=== PATIENT | male | born 1955 | race Caucasian/White ===

== ENCOUNTER 2017-09-12 13:13 | Inpatient (IN) ==
[2017-09-12] MEDS ORDERED: *HR* Etomidate 20 MG/10 ML AMPUL IVP ONE (13:25)
[2017-09-12] MEDS ORDERED: *HR* LORazepam 2 MG/ML VIAL IVP STA (15:00)
[2017-09-12] MEDS ORDERED: *HR* LORazepam 2 MG/ML VIAL ONE (15:02)
[2017-09-12] MEDS ORDERED: *HR* EPINEPHrine 1 MG/10 ML SYRINGE ONE (15:16)
[2017-09-12] MEDS ORDERED: 0.9 % Sodium Chloride 1,000 ML ONE ×2 (15:29→17:13)
[2017-09-12] MEDS ORDERED: Propofol 500 MG/50 ML INFUS..BTL ONE (15:30)
[2017-09-12] MEDS ORDERED: Lacri-Lube 3.5 GM TUBE BOTH EYES PRN (15:40)
[2017-09-12] MEDS ORDERED: FentaNYL (PF) 1,000 MCG in 0.9 % Sodium Chloride 80 ML IVC SCH (15:45)
[2017-09-12] MEDS ORDERED: *HR* Norepinephrine 4 MG/4 ML VIAL IVC ONE ×2 (15:54→20:36)
[2017-09-12] MEDS ORDERED: D5% in Water 250 ML ONE (15:54)
[2017-09-12] MEDS ORDERED: Lacri-Lube 3.5 GM TUBE BOTH EYES SCH (16:00)
--- NOTE | 2017-09-12 16:00 | Anesthesia Evaluation PreOp ---
Date of Encounter: 09/12/17 Time of Encounter: 15:58 - Past History Planned Operation: Free Air - Expl Lap, Possible Ostomy Cardiac History: Denies any Significant Hx (UNknown PMH) Pulmonary History: Other (Remote Hx Aspiration Pneumonia s/p G-tube placement) CHIEF LIFESTYLE OFFICER History: Other (Hx Cerebral Palsy/MRDD. Scoliosis/contractures) Other Medical History: Thyroid (Hypotryoidism), GERD (maintained on Omeprazole) , Other Anesthesia History: Past Anesthesia (Zeke w/ G-tube placement 1997., Bilateral Orchiectomy, Colonoscopy 2009) Alcohol Use: none Drug use: none Medications and Allergies Acetaminophen [Children's Acetaminophen] 650 mg GTUBE Q4H 09/02/17 [History] Baclofen [Lioresal] 10 mg GTUBE TID 09/02/17 [History] Calcium Carbonate 1,250 mg PO BID 09/02/17 [History] FLUoxetine HCl [Sarafem] 10 mg GTUBE DAILY 09/02/17 [History] Ibuprofen Susp [Motrin Susp] 200 mg GTUBE Q4H 09/02/17 [History] Ipratropium/Albuterol Neb [Duoneb] 3 ml IH Q4HR 09/02/17 [History] Lactulose 10 gm GTUBE DAILY 09/02/17 [History] Levothyroxine [Synthroid] 75 mcg GTUBE 0630 09/02/17 [History] Omeprazole [PriLOSEC] 20 mg GTUBE DAILY 09/02/17 [History] Cholecalciferol (Vitamin D3) [Vitamin D3] 400 units GTUBE BID 09/12/17 [History] 3 Allergy/AdvReac Type Severity Reaction Status Date / Time No Known Allergies Allergy Verified 09/02/17 09:46 - Meds/Allergy Pre-op Review Medications Reviewed: Yes Allergies Reviewed: Yes Beta Blockers on Current Med List: No Anesthesia Results - Labs Vital Signs Temp Pulse Resp BP Pulse Ox 09/12/17 14:48 101.6 F H 133 30 84/63 90 Intake and Output 09/11/17 09/12/17 09/12/17 23:59 07:59 15:59 Other: Weight 80.6 kg Blood Glucose* 163 Patient Weight 09/12/17 23:59 Weight 80.6 kg Laboratory Tests 09/12/17 09/12/17 11:30 11:30 WBC 2.7 L Hgb 16.9 Hct 50.9 H Plt Count 253 Sodium 134 L Potassium 3.7 Chloride 103 Carbon Dioxide 21 L BUN 21 Creatinine 0.60 L Est GFR (Non-Af Amer) > 60 Glucose 181 H - Imaging EKG: image reviewed (114bpm SUPRAVENTRICULAR TACHYCARDIA ARTIFACT LIMITS INTERPRETATION) Additional studies: CT/CT abd pelvis wo no iv no oral IMPRESSION: 1. Findings concerning for acute perforated diverticulitis involving the distal descending colon, likely the source of the pneumoperitoneum. 2. Fecal impaction. 3. Age-indeterminate compression fracture involving the superior endplate of L2. If there is point tenderness, recommend nonemergent MRI of the lumbar spine. 4. Trace bilateral pleural effusions. The ordering physician was aware of the critical results finding already from the chest radiograph. XR/XR chest 1V portable IMPRESSION: 1. Cardiomegaly with vascular congestion. 2. Pneumoperitoneum. These findings were discussed with Lon Call at 11:52 a.m. 09/12/2017. 3. Cholelithiasis. XR/XR hip complete LT IMPRESSION: Chronic appearing deformity and dislocation of the left hip. No acute osseous abnormality. sa Anesthesia Exam Vital Signs Temp Pulse Resp BP Pulse Ox 09/12/17 14:48 101.6 F H 133 30 84/63 90 Intake and Output 09/12/17 09/12/17 09/12/17 07:59 15:59 23:59 Other: Weight 80.6 kg Blood Glucose* 163 Patient Weight 09/12/17 23:59 Weight 80.6 kg Height: 4'8" Weight: 177# BMI= 39.8 NPO (# of Hours): MNOc - HEENT Pupil (Motor): Pupils equal, EOMI Mallampati: Intubated (intubated/sedated in ICU for Respiratory distress) - CHIEF LIFESTYLE OFFICER LOC: Unable to assess CHIEF LIFESTYLE OFFICER Motor: Deficit RUE (Pt is contractured) - Cardiac Rhythm: Regular Anesthesia Assess/Plan ASA Score: 3, E Modified Ana María Scale for Level of Consciousness: Cooperative, oriented, and tranquil Anesthetic Plan: General Monitoring Plan: Standard Monitors Anes Supervising Prov Stmt: Pt seen emergently in ICU. Spoke with guardian re:PMHx, PSHx and consent. - MD Muriel
[2017-09-12] MEDS ORDERED: Heparin 1,000 UNITS/500 mL 500 ML ONE (16:07)
--- NOTE | 2017-09-12 16:08 | General Surgery Consult Note ---
<Olga Brown Kasie - Last Filed: 09/12/17 16:04> Date of Encounter: 09/12/17 Time of Encounter: 15:00 Assessment and Plan (1) Perforated abdominal viscus Current Visit: No Status: Acute NPO IV fluids IV antibiotics- Zosyn Supportive care Discussed the risks benefits, alternatives and expected outcomes with the patient's legal guardian (Ailyn Jack) and she agrees that the patient may proceed to the operating room for an exploratory celiotomy, possible bowel resection, possible ostomy, replacement of peg tube, placement of jejunostomy tube (consent complete) Persaud catheter to SD for strict I&Os PPI therapy daily Check blood cultures Check PT/INR now Repeat am labs Critical care consult (2) Acute respiratory failure Current Visit: Yes Status: Acute Critical care consult for urgent intubation and medical management Ventilator management per critical care team ABG ordered now Qualifiers: Respiratory failure complication: unspecified whether with hypoxia or hypercapnia Qualified Code(s): J96.00 - Acute respiratory failure, unspecified whether with hypoxia or hypercapnia (3) Lactic acidosis Current Visit: Yes Status: Acute Lactic acid- 3.7 (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 Stubbs Qualifiers: Fever type: due to other condition Qualified Code(s): R50.81 - Fever presenting with conditions classified elsewhere (7) DVT prophylaxis Current Visit: Yes Status: Acute EPCDs to bilateral lower extremities for DVT prophylaxis History of Present Illness Consult date: 09/12/17 Reason for consult: other (perforated viscous; intra-abdominal free air) History of present illness: Mr. Valiente is a 62 year old male with multiple cormorbidities who presented to [place] ED from facility where he resides ([facility]) with complaints of hypoxia, shortness of breath and fever of 102 degrees. He did have a CT scan complete at [facility] which shows evidence of intra-abdominal free air consistent with perforated viscous, presumable diverticular perforation. He was transferred to [facility] for further work-up and treatment. Upon arrival, he is unresponsive and unable to answer any questions. No staff members are present to answer questions. He was in obvious acute respiratory distress with hypoxia. Temperature is 101.3 axillary. Heart rate is tachycardic in the 130's. Critical care team was asked to intervene for for acute respiratory arrest. Past Med Surg Social Fam HX - Past Medical History Source: old records reviewed Medical history: arthritis, GERD, osteoporosis, thyroid disease, other (MRDD, Spastic cerebral palsy/quadriplegia, constipation, esopagitis, dysphagia/ aspiration, Vitamin D deficiency, Bruxism, H. Pylori (2012), thoracoscoliosis with pelvic tilt) Psychiatric history: depression - Past Surgical History Surgical History: no surgical history (Bilateral orchrectomies, Zeke Fundoplication with G-tube insertion (1997), Colonoscopy 2009), other - Social History Smoking Status: Never smoker Smokeless Tobacco Status: No Alcohol use: none Drug use: none Occupational status: disabled Current living situation: Longterm Medications and Allergies Acetaminophen [Children's Acetaminophen] 650 mg GTUBE Q4H 09/02/17 [History] Baclofen [Lioresal] 10 mg GTUBE TID 09/02/17 [History] Calcium Carbonate 1,250 mg PO BID 09/02/17 [History] FLUoxetine HCl [Sarafem] 10 mg GTUBE DAILY 09/02/17 [History] Ibuprofen Susp [Motrin Susp] 200 mg GTUBE Q4H 09/02/17 [History] Ipratropium/Albuterol Neb [Duoneb] 3 ml IH Q4HR 09/02/17 [History] Lactulose 10 gm GTUBE DAILY 09/02/17 [History] Levothyroxine [Synthroid] 75 mcg GTUBE 0630 09/02/17 [History] Omeprazole [PriLOSEC] 20 mg GTUBE DAILY 09/02/17 [History] Cholecalciferol (Vitamin D3) [Vitamin D3] 400 units GTUBE BID 09/12/17 [History] 3 Allergy/AdvReac Type Severity Reaction Status Date / Time No Known Allergies Allergy Verified 09/02/17 09:46 Review of Systems ROS unobtainable: due to endotracheal tube, due to mental status All systems PM: The remainder of the systems were reviewed and are negative General Surgery Exam Initial Vital Signs Temp Pulse Resp BP Pulse Ox 101.6 F H 133 30 84/63 90 09/12/17 14:48 09/12/17 14:48 09/12/17 14:48 09/12/17 14:48 09/12/17 14:48 - General physical appearance severe distress, chronically ill, obese - Eyes PERRL - ENT dry mucosa, atraumatic, normocephalic - Neck trachea midline - Respiratory other (severe respiratory distress with minimal air movement/wheezes bilateral; diminished breath sounds bilaterally) - Cardiovascular Cardiovascular exam: Present: tachycardia - Abdomen Abdomen general surgery: Present: soft, distended, wound (G-tube secure at the abdominal wall) - Integumentary Integumentary general surgery: Present: warm and dry - Neurologic Present: other (Unable to assess) - Musculoskeletal Present: other (contracted/quadriplegia) - Psychiatric Psychiatric general surgery: Present: other (Unable to assess) Exam Initial Vital Signs Temp Pulse Resp BP Pulse Ox 101.6 F H 133 30 84/63 90 09/12/17 14:48 09/12/17 14:48 09/12/17 14:48 09/12/17 14:48 09/12/17 14:48 Results - Labs All other labs normal. - Imaging CT scan - abdomen: report reviewed CT scan - pelvis: report reviewed Consult Discharge Plan - Plan Referrals: Gabby Post MD [Primary Care Provider] - - Attending Attestation For this encounter, I have reviewed the CRUSHER LOADER EQUIPMENT OPERATOR or PA documentation, treatment plan, and medical decision making; and I have had face to face time with this patient. <Edil Stubbs M - Last Filed: 09/12/17 17:14> Date of Encounter: 09/12/17 Review of Systems All systems PM: The remainder of the systems were reviewed and are negative General Surgery Exam Initial Vital Signs Temp Pulse Resp BP Pulse Ox 101.6 F H 133 30 84/63 90 09/12/17 14:48 09/12/17 14:48 09/12/17 14:48 09/12/17 14:48 09/12/17 14:48 Exam Initial Vital Signs Temp Pulse Resp BP Pulse Ox 101.6 F H 133 30 84/63 90 09/12/17 14:48 09/12/17 14:48 09/12/17 14:48 09/12/17 14:48 09/12/17 14:48 Results - Labs All other labs normal. - Attending Attestation I reviewed the above assessment and evaluation and agree with the above plan. Patient intubated; medical history obtained from outside facility. Noted abdominal distension. Gtube in place. CT shows copious free air concerning for perforated diverticulitis. Patient on pressors. Will perform an exploratory celitiomy with possible ostomy and replacement of Gtube. Patient has had a Zeke-will not require a feeding jejunostomy.
[2017-09-12] MEDS ORDERED: 0.9 % Sodium Chloride 500 ML ONE ×2 (16:09→22:56)
--- NOTE | 2017-09-12 16:12 | Pulmonology Consult Note ---
<Michelle Krueger - Last Filed: 09/12/17 16:13> Date of Encounter: 09/12/17 Medications and Allergies Acetaminophen [Children's Acetaminophen] 650 mg GTUBE Q4H 09/02/17 [History] Baclofen [Lioresal] 10 mg GTUBE TID 09/02/17 [History] Calcium Carbonate 1,250 mg PO BID 09/02/17 [History] FLUoxetine HCl [Sarafem] 10 mg GTUBE DAILY 09/02/17 [History] Ibuprofen Susp [Motrin Susp] 200 mg GTUBE Q4H 09/02/17 [History] Ipratropium/Albuterol Neb [Duoneb] 3 ml IH Q4HR 09/02/17 [History] Lactulose 10 gm GTUBE DAILY 09/02/17 [History] Levothyroxine [Synthroid] 75 mcg GTUBE 0630 09/02/17 [History] Omeprazole [PriLOSEC] 20 mg GTUBE DAILY 09/02/17 [History] Cholecalciferol (Vitamin D3) [Vitamin D3] 400 units GTUBE BID 09/12/17 [History] 3 Allergy/AdvReac Type Severity Reaction Status Date / Time No Known Allergies Allergy Verified 09/02/17 09:46 All Systems: The remainder of the systems were reviewed and are negative Physical Examination Vital Signs: Vital Signs, Last 4 Hours Temp Pulse Resp BP Pulse Ox 09/12/17 14:48 101.6 F H 133 30 84/63 90 Results - Clinical Findings Intake & Output: Intake & Output 09/12/17 09/12/17 09/12/17 07:59 15:59 23:59 Weight 80.6 kg Consult Discharge Plan - Plan Referrals: Gabby Post MD [Primary Care Provider] - - Attending Attestation I examined this patient and my medical decision-making was reviewed with the Resident Physician. I agree with the documented findings, disposition and treatment plan as described except to the extent set forth below. Patient seen and examined. Labs, radiology, chart personally reviewed. Agree with resident's history and physical, assessment, plan with following comments: CREATIVE PRODUCER: Patient does not follows commands, Pulmonary: Patient was transferred to ICU in respiratory distress and in shock which seems to be septic shock and urgently intubated. Cardiovascular: Patient with combination of septic and hypovolemic shock and active resuscitation. GI: Discuss case with the surgeon and needs to have surgery due to the source of his shock is intra-abdominal. Heme: DVT prophylaxis per routine ID: Continue antibiotics and plan to de-escalation area to empiric coverage with antibiotics. Patient to be resuscitated and follow-up lactic acid. Renal; urine out put and renal funtion reviewed Endorcine: blood glucose is monitored Lines: all lines checked and no evidence of infections Skin: skin care to prevent pressure ulcers per nursing routine care Prognosis could be poor. Patient's guardian is aware of that situation. I spent 40 min of Critical Care time with this patient. It involved decision making of high complexity to assess, manipulate, and support vital organ system failure and/or to prevent further life threatening deterioration of the patient' s condition. The time involved in the performance of separately reportable procedures was not counted toward critical care time. <Earnest Baez - Last Filed: 09/12/17 18:19> Date of Encounter: 09/12/17 Time of Encounter: 17:31 Assessment and Plan (1) Septic shock Current Visit: Yes Status: Acute - Septic shock possibly secondary to perforated abdominal diverticulitis as seen on CT scan at [place] emergency room - Tachycardic, tachypnea And hypotensive despite 2 L of normal saline on arrival. No WBC elevation - Lactic acid of 3.7 in [place] - Alternative etiology also includes aspiration pneumonia - Started on Zosyn - Blood cultures drawn in [place] emergency room Plan - Continue Zosyn day #1 and add vancomycin for broad-spectrum antibiotic coverage - Additional 1 L normal saline bolus followed by 150 mL per hour of lactated Ringer's - Central venous catheter placement with vasopressor support - Reconsult fluid and will take to operating room this evening for pneumoperitoneum - Repeat lactic acid pending - Continue ventilator (2) Acute respiratory failure Current Visit: Yes Status: Acute - Acute hypoxemic respiratory failure due to septic shock, pneumoperitoneum, possible aspiration pneumonia - Further management as documented elsewhere in note - Continue ventilatory support Qualifiers: Respiratory failure complication: unspecified whether with hypoxia or hypercapnia Qualified Code(s): J96.00 - Acute respiratory failure, unspecified whether with hypoxia or hypercapnia (3) Perforated abdominal viscus Current Visit: Yes Status: Acute - As demonstrated on CT scan in [place] emergency room - Gen. surgery consult and will plan for OR this evening. 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 - Unsure baseline status - Nonverbal at this time - Did contact legal guardian for procedures and obtained consent (6) Cerebral palsy Current Visit: Yes Status: Chronic As above for mental retardation Qualifiers: Cerebral palsy type: spastic quadriplegic Qualified Code(s): G80.0 - Spastic quadriplegic cerebral palsy (7) Aspiration pneumonia Current Visit: Yes Status: Suspected -As above for septic shock Qualifiers: Aspiration pneumonia type: unspecified Laterality: unspecified laterality Lung location: unspecified part of lung Qualified Code(s): J69.0 - Pneumonitis due to inhalation of food and vomit (8) Lactic acidosis Current Visit: Yes Status: Acute Lactic acid of 3.7 in [place] emergency room - Likely secondary to septic shock as above - We will trend - Further management as above for septic shock (9) DVT prophylaxis Current Visit: Yes Status: Acute Heparin 5000 units every 12 hours following surgery this evening, per surgical team History of Present Illness Consult date: 09/12/17 Requesting physician: Chin Driver Reason for consult: hypoxemia Chief complaint: hypoxia History of present illness: 62-year-old male with a past medical history of arthritis, reflux, spastic quadriplegia, MRDD, incontinence, bruxism presented to [place] emergency room from [facility] with a reported hypoxemia. Baseline mental status is not known at this time and patient is nonverbal upon presentation to the intensive care unit. No family or guardians are present at bedside. He came via EMS and had a low oxygen saturation of 84% at [facility]. He was also reported a fever of 102 and difficulty breathing. Vital signs on arrival to [place] emergency room showed an heart rate of 141, respiratory rate 32, BP of 106/87, oxygen saturation did improve with supplemental oxygen via Oxy mask. Chest x-ray showed cardiomegaly, pneumoperitoneum and cholelithiasis. Abdominal CT was obtained for these findings and shows concerning findings of acute perforated diverticulitis involving the distal descending colon and likely pneumoperitoneum , fecal impaction, trace bilateral pleural effusions. [place] surgical team was called at that time and patient was transferred to [address] in the ICU. On arrival to the intensive care unit, patient was noted to have shallow rapid breathing and was not moving air despite supplemental oxygen. Guardian was contacted and reiterates that patient is a full code and gives verbal consent for endotracheal intubation as well as central venous catheter placement. Please see event notes for full details. Past Med Surg Social Fam HX - Past Medical History Medical history: arthritis, GERD, thyroid disease, other Psychiatric history: depression - Past Surgical History Surgical History: no surgical history - Social History Smoking Status: Never smoker Smokeless Tobacco Status: No Alcohol use: none Drug use: none ROS unobtainable: due to mental status All Systems: The remainder of the systems were reviewed and are negative Physical Examination Vital Signs: Vital Signs, Last 4 Hours Temp Pulse Resp BP Pulse Ox 09/12/17 14:48 101.6 F H 133 30 84/63 90 Gen.: Vitals noted. No acute distress. AAOx0. Nonverbal, does not respond to verbal stimuli. Does withdraw to tactile HEENT: PERRL/EOMI, oropharynx clear, Normocephalic, atraumatic, dry mucous membranes Cardiac: RRR, no murmur, +S1/S2 Pulmonary: Diffuse rhonchi present, shallow breaths, equal chest expansion Abdomen: soft, BS noted, involuntary guarding, no rebound. Distended Extremities: no BLE edema,, no cyanosis or clubbing Neuro: AAO 0, unable to assess further mental status Psych: Unable to assess due to mental status Results - Clinical Findings Intake & Output: Intake & Output 09/12/17 09/12/17 09/12/17 07:59 15:59 23:59 Weight 80.6 kg
--- NOTE | 2017-09-12 16:12 | Procedure Note ---
<Michelle Krueger M - Last Filed: 09/12/17 16:16> Procedure: I examined this patient and my medical decision-making was reviewed with the Resident Physician. I agree with the documented findings, disposition and treatment plan as described except to the extent set forth below. I have personally supervised the resident placing endotracheal intubation without immediate complications <Earnest Baez - Last Filed: 09/12/17 17:24> Date of procedure: 09/12/17 Pre-op diagnosis: Acute respiratory failure Post-op diagnosis: same Procedure: Procedure: Endotracheal intubation Date: 09/12/17 Time: 1600 Insurance Verification Clerk: Earnest Baez Attending: Dr. Krueger Indication: Acute respiratory failure The patient was placed in supine position. All equipment was checked and operational before beginning the procedure. Sedation was obtained using 20 mg etomidate. The patient was easily ventilated using an Ambu bag. There are laryngoscope using a Mac 3 blade was inserted into the oropharynx at which time a grade 1 view of the vocal cords was visualized. A 7.5 Sinhala endotracheal tube was inserted and visualized going through the cords. The stylet was removed. Colorimetric change was visualized on the CO2 meter. Breath sounds were heard in both lung toth. There were no breast breath sounds auscultated over the stomach. The endotracheal tube was placed at 24 cm at the lip line. Attending physician was in attendance throughout the entirety of the procedures. A chest x-ray was ordered afterwards to assess for pneumothorax and placement of the endotracheal tube. The patient tolerated the procedure well without desaturation or hemodynamic compromise. Anesthesia: IV sedation Was there an learning support assistant present: Yes Assembly Worker: Andrew Galvez Estimated blood loss (cc): 0 Specimen: none Pathology: none sent Condition: stable Disposition: ICU
--- NOTE | 2017-09-12 16:12 | Procedure Note ---
<Michelle Krueger M - Last Filed: 09/12/17 16:16> Procedure: I examined this patient and my medical decision-making was reviewed with the Resident Physician. I agree with the documented findings, disposition and treatment plan as described except to the extent set forth below. I have personally supervised the resident placing central line. <Earnest Baez - Last Filed: 09/12/17 17:29> Date of procedure: 09/12/17 Pre-op diagnosis: Hypotension Post-op diagnosis: same Procedure: Procedure Note: Central Venous Catheter Insertion Indication: Septic shock Attending Physician: Dr. Krueger Silk Weaver: Dr. Baez Indication: This is a 62 year-old male with hypotension despite fluid resusitation . Consent: Detailed explanation of the procedure, treatment options, risks including but not limited to infection and bleeding, and benefits were explained to the legal guardian as patient has MRDD. Verbal consent was obtained. Technique: A time out was preformed identifying the correct procedure, the correct location with the nursing staff. The right neck was prepped with 2% chlorhexidine and draped with a full length sterile sheet in the usual fashion. The right internal jugular vein was accessed under ultrasound guidance with an 18 gauge thin wall needle. A triple lumen was inserted via the seldinger technique. Blood was withdrawn from all lumens and flushed with normal saline. The catheter was sutured in place and a sterile dressing was applied over the site prior to removal of drapes. The patient tolerated the procedure well and there were no complications. Chest x ray: Shows no pneumothorax and good positioning EBL: 2 mL Complication: None Anesthesia: IV sedation Surgeon: Earnest Baez Was there an library circulation assistant present: Yes Burring Wheel Operator: Andrew Galvez Estimated blood loss (cc): 2 Specimen: none Pathology: none sent Condition: stable Disposition: ICU
--- NOTE | 2017-09-12 16:13 | Procedure Note ---
<Earnest Baez - Last Filed: 09/12/17 17:17> Date of procedure: 09/12/17 Pre-op diagnosis: Hypotension Post-op diagnosis: same Procedure: Arterial line placement was attempted however after examining the right and left radial arteries no appreciable arterial pulses were seen on ultrasound. This procedure was not attempted. Anesthesia: IV sedation Surgeon: Earnest Baez Was there an assistant director present: Yes Gas Mask Inspector: Andrew Galvez Estimated blood loss (cc): 0 Specimen: none <Michelle Krueger - Last Filed: 09/12/17 17:41> Procedure: I examined this patient and my medical decision-making was reviewed with the Resident Physician. I agree with the documented findings, disposition and treatment plan as described except to the extent set forth below. I have personally supervised the resident attempting placing line without immediate complications.
[2017-09-12] MEDS: Norepinephrine 4 MG in D5% in Water 250 ML IVC SCH ×2 (16:30→23:18)
[2017-09-12] MEDS ORDERED: *HR* FentaNYL (PF) 100 MCG/2 ML VIAL ONE (17:11)
[2017-09-12] MEDS ORDERED: *HR* Rocuronium Bromide 50 MG/5 ML VIAL ONE (17:12)
[2017-09-12] MEDS ORDERED: *HR* PHENYLEPHRINE 1,000 MCG/10 ML SYRINGE IVP ONE (17:13)
[2017-09-12] MEDS ORDERED: Ringers Solution, Lactated 1,000 ML IVC SCH (17:15)
[2017-09-12 17:36] LABS: INR 1.5; Prothrombin Time 16.3 Seconds (9.4-12.1)
[2017-09-12] MEDS ORDERED: cefOXitin 1,000 MG, 0.9 % Sodium Chloride 1,000 ML IR ONE (18:00)
[2017-09-12] MEDS ORDERED: *HR* Phenylephrine 10 MG/ML VIAL ONE (18:09)
[2017-09-12] MEDS ORDERED: *HR* Vasopressin 20 UNIT/ML VIAL ONE (18:36)
[2017-09-12] MEDS ORDERED: *HR* EPINEPHrine 1 MG/ML AMPUL ONE (18:38)
[2017-09-12] MEDS ORDERED: *HR* Midazolam HCl 2 MG/2 ML VIAL ONE ×2 (18:45→20:29)
[2017-09-12] MEDS ORDERED: CefOXitin 2,000 MG VIAL ONE (18:47)
--- NOTE | 2017-09-12 19:39 | Anesthesia Procedures ---
Date of Encounter: 09/12/17 Time of Encounter: 19:33 Procedures: Anesthesia - Arterial Line Comments: Multiple attempts, ultrasound guided, to place a right brachial and a right axillary arterial catheter. Small arterial caliber, collapsible (secondary shock), made it difficult to pass guidewires.
[2017-09-12] MEDS ORDERED: Heparin 1,000 UNITS/500 mL 1,000 ML ONE (20:13)
[2017-09-12 20:15] LABS: Hematocrit 35.6 % (37.5-50.1); Hemoglobin 11.2 g/dL (12.9-16.9); Mean Corpuscular HGB Conc 31.5 g/dL (31.6-35.5); Mean Corpuscular Hemoglobin 31.5 pg (28.0-33.3); Mean Corpuscular Volume 100.3 fL (83.0-100.0); Mean Platelet Volume 11.2 fL (9.4-12.4); Nucleated Red Blood Cells 1.2 /100 WBC (0); Platelet Count 172 K/mcL (140-400); Red Blood Count 3.55 M/mcL (4.19-5.50); Red Cell Distribution Width 14.5 % (11.5-14.5)
[2017-09-12 20:46] LABS: Eosinophils # 0.1 K/mcL (0.0-0.6); Lymphocytes # 1.1 K/mcL (0.6-4.6); Monocytes # 0.2 K/mcL (0.0-1.3); Neutrophils # 1.2 K/mcL (1.6-8.9); Platelet Estimate Normal (Normal); Polychromasia 1+ (Not Present)
[2017-09-12 20:47] LABS: Reactive Lymphocytes Present (Not Present)
--- NOTE | 2017-09-12 20:52 | Operative Note ---
Date of procedure: 09/12/17 Pre-op diagnosis: Free air, sepsis Post-op diagnosis: other (Duodenal perforation) Procedure: 1. Exploratory celiotomy. 2. Abdominal washout. 3. Repair of duodenal perforation. 4. Appendectomy. Anesthesia: CHRISTIANO Surgeon: Edil Stubbs Was there an produce assistant present: Yes Technical Testing Engineer: Stephanie Horvath Technical Testing Engineer Other: SAPNA Gottlieb Estimated blood loss (cc): 30 Specimen: appendix Condition: critical Disposition: ICU Procedure in Detail: Date of surgery: 09/12/17 After properly identifying the patient, the patient was brought to the operating room and placed in the supine position. The patient was already intubated in ICU prior to presentation. The patient's abdomen was prepped and draped and a timeout was performed noting the patient's symptom of procedure to be performed. Of note; CT scan was performed at [facility] showing air and the mesentery and free air present. There was concern that there may be visualized by CT scan read however the amount of air was most notable in the upper abdominal region near the area where there was a gastrostomy tube near the level of the duodenum. A 10 blade scalpel was used to make an incision from the pubic symphysis superiorly up towards the area of the G-tube placement. The patient actually had a Persaud catheter that was through the gastrostomy opening. This opening was noted midline so the scalpel was used to incise just to the right of the gastrostomy opening on the midline. Bovie cauterization was used to dissect through subcutaneous tissue onto the rectus fascia was identified and encountered and incised throughout the length of the incision. There was some ascitic fluid noted in the abdomen vertically in the pelvis. The sigmoid colon was noted to be dilated and was carefully examined. There was no evidence of diverticulitis nor any type of exudate present over the serosal surface. There was some pelvic fluid but this appeared to be ascitic in nature. Because of the lack of signs of diverticular perforation further examination was performed superiorly. There was some cloudy-appearing fluid noted and once the small bowel was extruded through the incision there was a mohr of what appeared to be a thickened fluid that actually was consistent with tube feed material. A Bookwalter was brought onto the operative field and used to retract the abdominal wall fascia laterally. The small bowel was further run and there was evidence of exudate on the serosal surface near the small bowel in the upper portion of the abdomen. The location of the patient's cecum was noted to be high up into the abdomen. The patient had a high riding right diaphragm and his liver was even further superior and posterior. The cecum and right colon were identified and retracted inferiorly while the lateral sidewall attachments were dissected with Bovie cauterization. This allowed for medial rotation of the colon. The duodenum was examined and there appeared to be bilious material coming from this region consistent with a perforation. The duodenum was dissected off its sidewall attachments to allow for medial rotation. At the second/third portion of the duodenum there was evidence of a perforation. There was also fluid in the right upper quadrant consistent with tube feed material which was immediately suctioned. The duodenal perforation was repaired with interrupted 3 -0 silk sutures. This region was copiously irrigated with normal saline solution containing Mefoxin and the decision was made to place a 19-Syriac Devon drain within this region which was secured with a 2-0 nylon suture. The mesentery of the small bowel was lifted superiorly and was additional fluid which was suctioned. There was a connection between this area with fluid at the base of the mesentery which then connected to the region superiorly up towards the C-loop of the duodenum. An additional 19-Syriac Devon drain was placed in this region and secured in place but it a 2-0 nylon suture. The decision was then made to conclude the surgical procedure by copious irrigating the abdomen with normal saline solution containing Mefoxin and closing the abdominal wall fascia with #2 looped PDS sutures 2. Subcutaneous 10 incision was reapproximated with 2-0 Vicryl sutures and the skin was left open. The wound was packed with plain Nu Gauze and cover with 4 x 4 gauze. The patient was kept intubated and transported to the ICU and a critical condition.
[2017-09-12] MEDS ORDERED: Chlorhexidine Rinse 15 ML MOUTHWASH MM SCH (21:00)
[2017-09-12] MEDS ORDERED: Vasopressin 40 UNIT in D5% in Water 100 ML IV SCH (21:15)
[2017-09-12] MEDS ORDERED: Ringers Solution, Lactated 1,000 ML IVC ONE ×2 (22:10→22:44)
[2017-09-12 22:13] LABS: ABG Base Excess -15 mEq/L (-2 to 3); ABG HCO3 13 mEq/L (21-27); ABG Oxygen Saturation 99 % (95-98); ABG PCO2 41 mmHg (35-45); ABG PH 7.12 pH Units (7.32-7.45); ABG PO2 165 mmHg (85-104); ABG TCO2 14 mEq/L (20-26); Blood Gas Modality VC; Blood Gas PEEP 5 cm H2O; Blood Gas Respiration Rate 16; Blood Gas VT 450 cc
[2017-09-12 23:00] LABS: BUN/Creatinine Ratio 34 (6-26); Blood Urea Nitrogen 23 mg/dL (8-23); Calcium 7.1 mg/dL (8.6-10.3); Carbon Dioxide 13 mEq/L (23-29); Chloride 115 mEq/L (98-107); Glucose 102 mg/dL (70-105); Osmolality,Calculated 286 (280-300); Potassium 3.9 mEq/L (3.5-5.1); Sodium 136 mEq/L (136-145); eGFR For African Americans > 60 (> 60); eGFR For Non-African Americans > 60 (> 60)
[2017-09-12 23:18] LABS: Hematocrit 32.5 % (37.5-50.1); Hemoglobin 10.2 g/dL (12.9-16.9); Mean Corpuscular HGB Conc 31.4 g/dL (31.6-35.5); Mean Corpuscular Hemoglobin 31.9 pg (28.0-33.3); Mean Corpuscular Volume 101.6 fL (83.0-100.0); Mean Platelet Volume 11.3 fL (9.4-12.4); Platelet Count 166 K/mcL (140-400); Red Cell Distribution Width 14.6 % (11.5-14.5)
[2017-09-12] MEDS: Sodium Bicarbonate 50 MEQ in 0.45 % Sodium Chloride 1,000 ML IVC SCH (23:18)
[2017-09-12 23:19] LABS: Nucleated Red Blood Cells 2.1 /100 WBC (0)
[2017-09-12] MEDS ORDERED: Calcium Gluconate 2,000 MG in 0.9 % Sodium Chloride 100 ML IVPB ONE (23:40)
[2017-09-12] MEDS: Phenylephrine 10 MG in D5% in Water 250 ML IVC SCH (23:50)
[2017-09-13 00:01] LABS: Lymphocytes # 1.4 K/mcL (0.6-4.6); Neutrophils # 2.5 K/mcL (1.6-8.9); Platelet Estimate Normal (Normal)
[2017-09-13 00:02] LABS: Reactive Lymphocytes Present (Not Present)
[2017-09-13] MEDS: Piperacillin/Tazobactam 3.375 GM in 0.9 % Sodium Chloride Mini Bag 100 ML IVPB SCH ×3 (01:17→08:28)
[2017-09-13] MEDS: Norepinephrine 4 MG in D5% in Water 250 ML IVC SCH ×3 (02:09→08:07)
[2017-09-13] MEDS ORDERED: Hydrocortisone Sodium Succ 100 MG/2 ML VIAL IVP ONE (02:49)
[2017-09-13] MEDS ORDERED: Ringers Solution, Lactated 1,000 ML IVC ONE ×2 (02:54→04:15)
[2017-09-13] MEDS ORDERED: *HR* Dextrose 50 % in Water (Syg) 50 ML SYRINGE ONE ×2 (03:25→12:28)
[2017-09-13] MEDS ORDERED: *HR* Dextrose 50 % in Water (Syg) 50 ML SYRINGE IVP ONE (03:34)
[2017-09-13] MEDS: Phenylephrine 10 MG in D5% in Water 250 ML IVC SCH ×3 (04:59→08:08)
[2017-09-13 05:04] LABS: Basophils % 0.2 %; Eosinophils # 0.2 K/mcL (0.0-0.6); Eosinophils % 2.9 %; Hematocrit 24.3 % (37.5-50.1); Immature Granulocytes % 3.9 % (0-4); Lymphocytes # 2.5 K/mcL (0.6-4.6); Lymphocytes % 29.4 %; Mean Corpuscular HGB Conc 29.2 g/dL (31.6-35.5); Mean Corpuscular Hemoglobin 32.6 pg (28.0-33.3); Mean Platelet Volume 11.9 fL (9.4-12.4); Monocytes # 0.3 K/mcL (0.0-1.3); Monocytes % 3.8 %; Nucleated Red Blood Cells 2.9 /100 WBC (0); Platelet Count 138 K/mcL (140-400); Red Blood Count 2.18 M/mcL (4.19-5.50); Red Cell Distribution Width 15.4 % (11.5-14.5); Segmented Neutrophils % 59.8 %
[2017-09-13 05:10] LABS: BUN/Creatinine Ratio 23 (6-26); Blood Urea Nitrogen 23 mg/dL (8-23); Calcium 7.1 mg/dL (8.6-10.3); Carbon Dioxide 9 mEq/L (23-29); Chloride 108 mEq/L (98-107); Glucose 114 mg/dL (70-105); Osmolality,Calculated 285 (280-300); Potassium 5.7 mEq/L (3.5-5.1); Sodium 135 mEq/L (136-145); eGFR For African Americans > 60 (> 60); eGFR For Non-African Americans > 60 (> 60)
[2017-09-13 05:41] LABS: Mean Corpuscular Volume 111.5 fL (83.0-100.0)
[2017-09-13 05:42] LABS: Hemoglobin 7.1 g/dL (12.9-16.9)
[2017-09-13] MEDS ORDERED: 0.9 % Sodium Chloride 1,000 ML ONE (05:55)
[2017-09-13] MEDS ORDERED: *HR* Heparin 5,000 UNIT/ML VIAL SQ SCH (06:00)
[2017-09-13 06:01] LABS: Platelet Estimate Slight Decrease (Normal)
[2017-09-13 06:02] LABS: Hypochromasia Present (Not Present); Macrocytosis Present (Not Present); Polychromasia 1+ (Not Present)
[2017-09-13] MEDS ORDERED: 0.9 % Sodium Chloride 1,000 ML IVC ONE (06:20)
--- NOTE | 2017-09-13 07:40 | Pulmonology Progress Note ---
<Rayray Kruegerjessica M - Last Filed: 09/13/17 10:08> Date of Encounter: 09/13/17 Objective PUL Vital signs: Last Vital Signs Temp 97.8 F 09/13/17 08:00 Pulse 98 09/13/17 10:04 Resp 16 09/13/17 10:04 BP 59/43 09/13/17 10:04 Pulse Ox 90 09/13/17 09:00 Ventilator Settings Ventilator Settings: Ventilator Settings, Last 8 Hours Ventilator Mode VC+ Ventilator Tidal Volume 450 Setting Ventilator Tidal Volume 450 Setting Ventilator Tidal Volume 450 Setting Ventilator Tidal Volume 450 Setting Ventilator Tidal Volume 450 Setting Ventilator Tidal Volume 450 Setting Ventilator Tidal Volume 450 Setting Ventilator Tidal Volume 450 Setting Ventilator Tidal Volume 450 Setting Ventilator Tidal Volume 450 Setting Ventilator Tidal Volume 450 Setting Ventilator Respiratory Rate 16 Setting Ventilator Respiratory Rate 16 Setting Ventilator Respiratory Rate 16 Setting Ventilator Respiratory Rate 16 Setting Ventilator Respiratory Rate 16 Setting Ventilator Respiratory Rate 16 Setting Ventilator Respiratory Rate 16 Setting Ventilator Respiratory Rate 16 Setting Ventilator Respiratory Rate 16 Setting Ventilator Respiratory Rate 16 Setting Ventilator Respiratory Rate 16 Setting Actual Respiratory Rate 16 Actual Respiratory Rate 16 Actual Respiratory Rate 16 Actual Respiratory Rate 16 Actual Respiratory Rate 16 Actual Respiratory Rate 16 Actual Respiratory Rate 16 Actual Respiratory Rate 16 Actual Respiratory Rate 16 Actual Respiratory Rate 18 Actual Respiratory Rate 24 Positive End Expiratory 5 Pressure Positive End Expiratory 5 Pressure Positive End Expiratory 5 Pressure Positive End Expiratory 5 Pressure Positive End Expiratory 5 Pressure Positive End Expiratory 5 Pressure Positive End Expiratory 5 Pressure Positive End Expiratory 5 Pressure Positive End Expiratory 5 Pressure Positive End Expiratory 5 Pressure Positive End Expiratory 5 Pressure Peak Inspiratory Airway 32 Pressure Peak Inspiratory Airway 32 Pressure Peak Inspiratory Airway 32 Pressure Peak Inspiratory Airway 32 Pressure Peak Inspiratory Airway 32 Pressure Peak Inspiratory Airway 39 Pressure Peak Inspiratory Airway 40 Pressure Peak Inspiratory Airway 39 Pressure Peak Inspiratory Airway 39 Pressure Peak Inspiratory Airway 34 Pressure Peak Inspiratory Airway 28 Pressure Results - Laboratory Findings CBC and BMP: 09/13/17 04:28 09/13/17 04:25 ABG ABG pH 7.12 pH Units (7.32-7.45) L* 09/12/17 22:09 ABG pCO2 41 mmHg (35-45) 09/12/17 22:09 ABG pO2 165 mmHg (85-104) H 09/12/17 22:09 ABG O2 Saturation 99 % (95-98) H 09/12/17 22:09 PT/INR, D-dimer PT 16.3 Seconds (9.4-12.1) H 09/12/17 17:11 Abnormal lab findings: Abnormal lab results RBC 2.18 M/mcL (4.19-5.50) L 09/13/17 04:28 Hgb 7.1 g/dL (12.9-16.9) L D 09/13/17 04:28 Hct 24.3 % (37.5-50.1) L 09/13/17 04:28 MCV 111.5 fL (83.0-100.0) H D 09/13/17 04:28 MCHC 29.2 g/dL (31.6-35.5) L 09/13/17 04:28 RDW 15.4 % (11.5-14.5) H 09/13/17 04:28 Plt Count 138 K/mcL (140-400) L 09/13/17 04:28 Band Neutrophils % 8.0 % (0-4) H 09/12/17 23:05 Nucleated RBCs/100 WBC 2.9 /100 WBC (0) H 09/13/17 04:28 Reactive Lymphocytes Present (Not Present) A 09/12/17 23:05 Platelet Estimate Slight Decrease (Normal) L 09/13/17 04:28 Polychromasia 1+ (Not Present) A 09/13/17 04:28 Hypochromasia Present (Not Present) A 09/13/17 04:28 Macrocytosis Present (Not Present) A 09/13/17 04:28 PT 16.3 Seconds (9.4-12.1) H 09/12/17 17:11 ABG pH 7.12 pH Units (7.32-7.45) L* 09/12/17 22:09 ABG pO2 165 mmHg (85-104) H 09/12/17 22:09 ABG HCO3 13 mEq/L (21-27) L 09/12/17 22:09 ABG Total CO2 14 mEq/L (20-26) L 09/12/17 22:09 ABG O2 Saturation 99 % (95-98) H 09/12/17 22:09 ABG Base Excess -15 mEq/L (-2 to 3) L 09/12/17 22:09 Sodium 135 mEq/L (136-145) L 09/13/17 04:25 Potassium 5.7 mEq/L (3.5-5.1) H D 09/13/17 04:25 Chloride 108 mEq/L (98-107) H 09/13/17 04:25 Carbon Dioxide 9 mEq/L (23-29) L* 09/13/17 04:25 Glucose 114 mg/dL (70-105) H 09/13/17 04:25 Lactic Acid > 10.0 mmol/L (0.5-2.2) H* 09/13/17 03:45 Calcium 7.1 mg/dL (8.6-10.3) L 09/13/17 04:25 - Clinical Findings Intake & Output: Intake & Output 09/12/17 09/13/17 09/13/17 23:59 07:59 15:59 Intake Total 522.4 / 522.4 1615 / 1615 1150 / 1150 Output Total 495 / 495 955 / 955 255 / 255 Balance 27.4 / 27.4 660 / 660 895 / 895 Consult Discharge Plan - Plan Referrals: Gabby Post MD [Primary Care Provider] - - Attending Attestation I examined this patient and my medical decision-making was reviewed with the Resident Physician. I agree with the documented findings, disposition and treatment plan as described except to the extent set forth below. Patient seen and examined. Labs, radiology, chart personally reviewed. Agree with resident's history and physical, assessment, plan with following comments: SENSITIZER: Patient does not follows commands, patient is not on any sedation and is unresponsive. Pulmonary: Patient is not stable for spontaneous breathing trial and prognosis is poor Cardiovascular: Patient is in shock GI: Nutrition per dietary and GI prophylaxis per routine Heme: DVT prophylaxis per routine ID: Continue antibiotics and plan to de-escalation. Patient in septic shock and multiple pressors with extremely poor prognosis and metabolic acidosis with lactic acidosis. Approaching guardian for possible CODE STATUS change and palliative care is following up. Would change bicarbonate drip tomorrow and have it more concentrated. We will also consider antifungal. Renal; urine out put and renal funtion reviewed Endorcine: blood glucose is monitored. Add systemic steroid Lines: all lines checked and no evidence of infections Skin: skin care to prevent pressure ulcers per nursing routine care Patient with elevated lactic acid with significant risk and high mortality and I suspect patient will and I would not be surprised if he survives this acute illness. I spent 35 min of Critical Care time with this patient. It involved decision making of high complexity to assess, manipulate, and support vital organ system failure and/or to prevent further life threatening deterioration of the patient' s condition. The time involved in the performance of separately reportable procedures was not counted toward critical care time. <KyrieEarnest panda - Last Filed: 09/13/17 17:17> Date of Encounter: 09/13/17 Time of Encounter: 08:00 Assessment and Plan (1) Septic shock Current Visit: Yes Status: Acute - Septic shock possibly secondary to perforated abdominal diverticulitis as seen on CT scan at [facility] emergency room - Tachycardic, tachypnea And hypotensive despite 2 L of normal saline on arrival. No WBC elevation - Lactic acid of 3.7 in [facility], repeat >10 after surgery - Alternative etiology also includes aspiration pneumonia - Started on Zosyn , vanc - Blood cultures drawn in [facility] emergency room Plan - Continue Zosyn day #2 and vancomycin day #2 for broad-spectrum antibiotic coverage - Received aggressive fluid resuscitation overnight and multiple sodium bicarbonate pushes - Central venous catheter placement with vasopressor support. Currently requiring 2 pressors - Gen. surgery evaluated and patient returned from operating room last evening - Continue to trend lactic acid - Continue ventilator - We will start bicarbonate drip for lactic acidosis - (2) Acute respiratory failure Current Visit: Yes Status: Acute - Acute hypoxemic respiratory failure due to septic shock, pneumoperitoneum, possible aspiration pneumonia - Further management as documented elsewhere in note - Continue ventilatory support Qualifiers: Respiratory failure complication: unspecified whether with hypoxia or hypercapnia Qualified Code(s): J96.00 - Acute respiratory failure, unspecified whether with hypoxia or hypercapnia (3) Perforated abdominal viscus Current Visit: Yes Status: Acute - As demonstrated on CT scan in [facility] emergency room - Gen. 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 - Unsure baseline status - Nonverbal at this time - Did contact legal guardian for procedures and obtained consent - Guardian contacted and forms were filled out to change CODE STATUS this morning - Information faxed to [place], awaiting return and approval - Please see palliative care note (6) Cerebral palsy Current Visit: Yes Status: Chronic As above Qualifiers: Cerebral palsy type: spastic quadriplegic Qualified Code(s): G80.0 - Spastic quadriplegic cerebral palsy (7) Aspiration pneumonia Current Visit: Yes Status: Suspected Possible aspiration contributed to septic shock, however is more likely that this is secondary to pneumoperitoneum Qualifiers: Aspiration pneumonia type: unspecified Laterality: unspecified laterality Lung location: unspecified part of lung Qualified Code(s): J69.0 - Pneumonitis due to inhalation of food and vomit (8) Lactic acidosis Current Visit: Yes Status: Acute Lactic acid on presentation of 3.7, after surgery was trended and is currently greater than 10 - Patient received multiple doses of sodium bicarbonate and will start on sodium bicarbonate drip today - Very likely related to abdominal pathology (9) Counseling regarding advanced care planning and goals of care Current Visit: Yes Status: Acute Palliative care consulted ] Patient's legal guardian discussed this morning and does not want to have patient go through resuscitation if his heart should stop. Forms are filled out by palliative care and have been faxed to [place] for approval (10) DVT prophylaxis Current Visit: Yes Status: Acute Heparin Subjective Principal diagnosis: Septic shock Interval history: Patient was seen and examined at bedside this morning. He remains intubated and sedated on ventilator and is unable to aspirate and subjective history. Overnight, patient was noted to be hypotensive requiring multiple vasopressors for support. His bicarbonate was noted to be 9 and patient received multiple boluses of sodium bicarbonate. As well as aggressive fluid resuscitation. He is also noted to have mottling present extending to the mid abdomen. Objective PUL Vital signs: Last Vital Signs Temp 98 F 09/13/17 04:00 Pulse 111 09/13/17 06:00 Resp 16 09/13/17 06:00 BP 99/40 09/13/17 06:00 Pulse Ox 90 09/13/17 04:00 Gen.: Vitals noted. No acute distress. AAOx0. Intubated and sedated HEENT: PERRL/EOMI, oropharynx clear, Normocephalic, atraumatic, endotracheal tube in place Cardiac: RRR, no murmur, +S1/S2 Pulmonary: Coarse breath sounds diffusely, extensive wheezes. equal chest expansion Abdomen: Bowel sounds absent, no guarding, unable to appreciate tenderness, extensive mottling present up to mid abdomen. Incisions without evidence of infection MSK: No joint swelling Extremities: no BLE edema, nontender calf, no cyanosis or clubbing Neuro: Sedated, unable to assess further. Pupils dilated and minimally reactive Psych: Unable to assess Ventilator Settings Ventilator Settings: Ventilator Settings, Last 8 Hours Ventilator Mode VC+ Ventilator Mode VC+ Ventilator Mode VC+ Ventilator Mode VC+ Ventilator Tidal Volume 450 Setting Ventilator Tidal Volume 450 Setting Ventilator Tidal Volume 450 Setting Ventilator Tidal Volume 450 Setting Ventilator Tidal Volume 450 Setting Ventilator Tidal Volume 450 Setting Ventilator Tidal Volume 450 Setting Ventilator Tidal Volume 450 Setting Ventilator Tidal Volume 450 Setting Ventilator Tidal Volume 450 Setting Ventilator Respiratory Rate 16 Setting Ventilator Respiratory Rate 16 Setting Ventilator Respiratory Rate 16 Setting Ventilator Respiratory Rate 16 Setting Ventilator Respiratory Rate 16 Setting Ventilator Respiratory Rate 16 Setting Ventilator Respiratory Rate 16 Setting Ventilator Respiratory Rate 16 Setting Ventilator Respiratory Rate 16 Setting Ventilator Respiratory Rate 16 Setting Actual Respiratory Rate 16 Actual Respiratory Rate 16 Actual Respiratory Rate 16 Actual Respiratory Rate 16 Actual Respiratory Rate 18 Actual Respiratory Rate 24 Actual Respiratory Rate 25 Actual Respiratory Rate 23 Actual Respiratory Rate 26 Actual Respiratory Rate 19 Positive End Expiratory 5 Pressure Positive End Expiratory 5 Pressure Positive End Expiratory 5 Pressure Positive End Expiratory 5 Pressure Positive End Expiratory 5 Pressure Positive End Expiratory 5 Pressure Positive End Expiratory 5 Pressure Positive End Expiratory 5 Pressure Positive End Expiratory 5 Pressure Positive End Expiratory 5 Pressure Peak Inspiratory Airway 39 Pressure Peak Inspiratory Airway 40 Pressure Peak Inspiratory Airway 39 Pressure Peak Inspiratory Airway 39 Pressure Peak Inspiratory Airway 34 Pressure Peak Inspiratory Airway 28 Pressure Peak Inspiratory Airway 29 Pressure Peak Inspiratory Airway 28 Pressure Peak Inspiratory Airway 29 Pressure Peak Inspiratory Airway 32 Pressure Results - Laboratory Findings CBC and BMP: 09/13/17 04:28 09/13/17 04:25 ABG ABG pH 7.12 pH Units (7.32-7.45) L* 09/12/17 22:09 ABG pCO2 41 mmHg (35-45) 09/12/17 22:09 ABG pO2 165 mmHg (85-104) H 09/12/17 22:09 ABG O2 Saturation 99 % (95-98) H 09/12/17 22:09 PT/INR, D-dimer PT 16.3 Seconds (9.4-12.1) H 09/12/17 17:11 Abnormal lab findings: Abnormal lab results RBC 2.18 M/mcL (4.19-5.50) L 09/13/17 04:28 Hgb 7.1 g/dL (12.9-16.9) L D 09/13/17 04:28 Hct 24.3 % (37.5-50.1) L 09/13/17 04:28 MCV 111.5 fL (83.0-100.0) H D 09/13/17 04:28 MCHC 29.2 g/dL (31.6-35.5) L 09/13/17 04:28 RDW 15.4 % (11.5-14.5) H 09/13/17 04:28 Plt Count 138 K/mcL (140-400) L 09/13/17 04:28 Band Neutrophils % 8.0 % (0-4) H 09/12/17 23:05 Nucleated RBCs/100 WBC 2.9 /100 WBC (0) H 09/13/17 04:28 Reactive Lymphocytes Present (Not Present) A 09/12/17 23:05 Platelet Estimate Slight Decrease (Normal) L 09/13/17 04:28 Polychromasia 1+ (Not Present) A 09/13/17 04:28 Hypochromasia Present (Not Present) A 09/13/17 04:28 Macrocytosis Present (Not Present) A 09/13/17 04:28 PT 16.3 Seconds (9.4-12.1) H 09/12/17 17:11 ABG pH 7.12 pH Units (7.32-7.45) L* 09/12/17 22:09 ABG pO2 165 mmHg (85-104) H 09/12/17 22:09 ABG HCO3 13 mEq/L (21-27) L 09/12/17 22:09 ABG Total CO2 14 mEq/L (20-26) L 09/12/17 22:09 ABG O2 Saturation 99 % (95-98) H 09/12/17 22:09 ABG Base Excess -15 mEq/L (-2 to 3) L 09/12/17 22:09 Sodium 135 mEq/L (136-145) L 09/13/17 04:25 Potassium 5.7 mEq/L (3.5-5.1) H D 09/13/17 04:25 Chloride 108 mEq/L (98-107) H 09/13/17 04:25 Carbon Dioxide 9 mEq/L (23-29) L* 09/13/17 04:25 Glucose 114 mg/dL (70-105) H 09/13/17 04:25 Lactic Acid > 10.0 mmol/L (0.5-2.2) H* 09/13/17 03:45 Calcium 7.1 mg/dL (8.6-10.3) L 09/13/17 04:25 - Clinical Findings Intake & Output: Intake & Output 09/12/17 09/12/17 09/13/17 15:59 23:59 07:59 Intake Total 272.4 / 272.4 1010 / 1010 Output Total 495 / 495 955 / 955 Balance -222.6 / -222.6 55 / 55 Weight 80.6 kg
[2017-09-13] MEDS ORDERED: Pantoprazole 40 MG VIAL IVP SCH (09:00)
[2017-09-13] MEDS: Sodium Bicarbonate 50 MEQ in 0.45 % Sodium Chloride 1,000 ML IVC SCH (09:57)
[2017-09-13] MEDS ORDERED: Norepinephrine 8 MG in D5% in Water 250 ML IVC SCH (10:00)
[2017-09-13] MEDS ORDERED: Phenylephrine 50 MG in D5% in Water 250 ML IVC SCH (10:00)
--- NOTE | 2017-09-13 10:48 | Palliative - Consult Note ---
Date of Encounter: 09/13/17 Time of Encounter: 10:45 - Assessment and Plan (1) Anxiety Current Visit: Yes Status: Acute Assessment and plan: Remains on propofol per ICU protocol. MOnitor (2) Generalized pain Current Visit: Yes Status: Acute Assessment and plan: Remains on Fentanyl drip per ICU protocol. MOnitor (3) Counseling regarding advanced care planning and goals of care Current Visit: Yes Status: Acute Assessment and plan: Spoke with Dr. Stubbs, Dr. Krueger, and Ayesha Woods from [employer]. Spoke with pt guardian, Ailyn Jack, who at this point, does not desire patient to go through code blue for cardiac arrest. Forms completed for [employer] requesting authorization for consideration of change in code status r/t his current condition, and likelihood of not surviving if he experienced a cardiac arrest. These were faxed to [facility]. Will be awaiting response. Updated ICU primary nurse Aga, Dr. Krueger, and resident Dr. Baez. Spoke with pt guardian, who will be coming to see patient within the next few hours. (4) Perforated diverticulum of duodenum Current Visit: Yes Status: Acute (5) Acute respiratory failure Current Visit: Yes Status: Acute Qualifiers: Respiratory failure complication: unspecified whether with hypoxia or hypercapnia Qualified Code(s): J96.00 - Acute respiratory failure, unspecified whether with hypoxia or hypercapnia (6) Septic shock Current Visit: Yes Status: Acute Palliative-CN HPI - Data of Consult Consult date: 09/13/17 Requesting Physician: Chin Driver Primary Care Provider: Gabby Post - Consult Narrative History of present illness: Mr. Valiente is a 62-year-old male with a past medical history of arthritis, reflux , spastic quadriplegia, MRDD, incontinence, bruxism presented to [facility] emergency room from [facility] with a reported hypoxemia, and fever. EMS was called and found with oxygen sat of 84%. Was transported to [facility], he was tachycardia, tachypnea - CT abd demonstrated perforation. He transported to [facility] and intubated in ICU when noted to have shallow breathing. He underwent urgent surgery last night with Dr. Stubbs, [facility], receiving exploratory celiotomy, repair of perforation, appendectomy , and abdominal washout. He has remained critical and hypotensive, on 3 vasopressors. He is also mottled from waist down. [facility] caregiver present at bedside. I am attempting to contact pt legal guardian, Ailyn Jack, to further discuss goals of care. Prognosis extremely poor - remains hypotensive despite multiple vasopressors. D/W Dr. Stubbs. CC: Chin Driver Past Med Surg Social Fam HX - Past Medical History Medical history: arthritis, GERD, thyroid disease, other Psychiatric history: depression - Past Surgical History Surgical History: no surgical history - Social History Smoking Status: Never smoker Smokeless Tobacco Status: No Alcohol use: none Drug use: none Medications and Allergies Acetaminophen [Children's Acetaminophen] 650 mg GTUBE Q4H 09/02/17 [History] Baclofen [Lioresal] 10 mg GTUBE TID 09/02/17 [History] Calcium Carbonate 1,250 mg GTUBE BID 09/02/17 [History] FLUoxetine HCl [Sarafem] 10 mg GTUBE DAILY 09/02/17 [History] Ibuprofen Susp [Motrin Susp] 200 mg GTUBE Q4H 09/02/17 [History] Ipratropium/Albuterol Neb [Duoneb] 3 ml IH Q4HR 09/02/17 [History] Lactulose 10 gm GTUBE DAILY 09/02/17 [History] Levothyroxine [Synthroid] 75 mcg GTUBE 0630 09/02/17 [History] Omeprazole [PriLOSEC] 20 mg GTUBE DAILY 09/02/17 [History] Cholecalciferol (Vitamin D3) [Vitamin D3] 400 units GTUBE BID 09/12/17 [History] Loperamide [Imodium] 4 mg GTUBE DAILY PRN 09/12/17 [History] Mag Hydrox/Al Hydrox/Simeth [Maalox] 40 ml GTUBE Q4HR 09/12/17 [History] Multivitamin [One Daily Essential] 1 tab GTUBE DAILY 09/12/17 [History] 3 Allergy/AdvReac Type Severity Reaction Status Date / Time No Known Allergies Allergy Verified 09/02/17 09:46 ROS unobtainable: due to endotracheal tube, due to mental status Palliative Care-Exam - Constitutional Vitals: Temp Pulse Resp BP Pulse Ox 97.8 F 98 16 59/43 90 09/13/17 08:00 09/13/17 10:04 09/13/17 10:04 09/13/17 10:04 09/13/17 09:00 General appearance: Present: mild distress - Head Head Exam: Present: normal inspection, normocephalic - Respiratory Additional comments: Wheezes throughout all lung toth. Breath sounds course - Cardiovascular Cardiovascular exam: Present: irregular rhythm, tachycardia - GI/Abdominal Exam GI/Abdominal exam: Present: distended additional comments: Abd dressing to open incision D/I. ANDREAS x2 patent and draining bloody fluid. - Catheter Type: Urethral (Persaud) - Extremities Exam Additional comments: Mottling noted from waist down. Right leg significantly more discolored than left. - Neurological Exam Additional comments: Sedated on ventilator - Skin Skin exam: Present: dry, mottled, pallor, warm Internal Medicine - CN: Reslt - Labs CBC & Chem 7: 09/13/17 04:28 09/13/17 04:25 Labs: Short CBC 09/12/17 09/12/17 09/13/17 Range/Units 19:36 23:05 04:28 WBC 2.6 L 3.9 L 8.4 D (4.3-11.1) K/mcL Hgb 11.2 L D 10.2 L 7.1 L D (12.9-16.9) g/dL Hct 35.6 L 32.5 L 24.3 L (37.5-50.1) % Plt Count 172 166 138 L (140-400) K/mcL Neutrophils # 1.2 L 2.5 5.0 (1.6-8.9) K/mcL BMP 09/12/17 09/13/17 22:11 04:25 Sodium 136 135 L Potassium 3.9 5.7 H D Chloride 115 H 108 H Carbon Dioxide 13 L 9 L* BUN 23 23 Creatinine 0.67 L 1.01 Glucose 102 114 H Calcium 7.1 L 7.1 L - ABG Interpretation ABG results: ABG ABG pH 7.12 pH Units (7.32-7.45) L* 09/12/17 22:09 ABG pCO2 41 mmHg (35-45) 09/12/17 22:09 ABG pO2 165 mmHg (85-104) H 09/12/17 22:09 ABG O2 Saturation 99 % (95-98) H 09/12/17 22:09 PT/INR, D-dimer PT 16.3 Seconds (9.4-12.1) H 09/12/17 17:11 - Impressions Impressions Chest X-Ray 09/12/17 15:40 IMPRESSION: ET tube and enteric tube in satisfactory position. Low lung volumes with bibasilar atelectasis and pleural effusions. D/ / 09/12/2017 17:33:38 Reuben Hoover MD / [facility] Interpreting Provider: Reuben Hoover MD KUB X-Ray 09/12/17 15:41 IMPRESSION: Upper abdomen is not imaged on this exam to evaluate for enteric tube placement. Cholelithiasis. Pneumoperitoneum and air in the retroperitoneum as seen on recent CT. D/ / 09/12/2017 17:29:33 Reuben Hoover MD / [facility] Interpreting Provider: Reuben Hoover MD Chest X-Ray 09/13/17 04:00 IMPRESSION: Low-lying endotracheal tube (1.5 cm above the malou). Recommend retracting 1-3 cm. Esophageal termination of the esophagogastric tube. Recommend advancing at least 10 cm. Increased bilateral effusions and airspace disease. The findings were sent to the Radiology Results Communication Center at 6:33 am on 09/13/2017to be communicated to a licensed caregiver. D/ / Ra Dunn / Ra Dunn Interpreting Provider: Ra Dunn Consult Discharge Plan - Plan Referrals: Gabby Post MD [Primary Care Provider] - Palliative Quality Palliative Quality: Screen for Code Status: NA (Awaiting response from [employer] guardian), Screen for Goals of Care: NA, Screen for Pain: NA, If Pain Regimen Started, Initiate Bowel Regimen: NA, Screen for Nausea/Vomitting: NA Code Status: 09/12/17 15:40 Resuscitation Status: Active [RES] Routine Comment: Resuscitation Status: Full Code
[2017-09-13] MEDS ORDERED: Sodium Bicarbonate 150 MEQ in D5% in Water 1,000 ML IVC SCH (11:45)
[2017-09-13 13:09] VITALS: BP 90/73
[2017-09-13] MEDS ORDERED: Aminoglycoside Consult 1 EACH MC ONE (13:25)
--- NOTE | 2017-09-13 13:49 | Death Note ---
<Earnest Baez - Last Filed: 09/13/17 13:46> Pronouncement Note - Date and Time of Date of : 09/13/17 Time of : 13:26 - PCOD Preliminary cause of : Cardiac arrest - Additional Data Confirmation of : no pulse, no respirations, no heart sounds, pupils fixed and dilated Additional persons at bedside: other Attending physician: Chin Driver Was code activated?: No <Michelle Krueger - Last Filed: 09/13/17 16:49> Pronouncement Note - Additional Data Attending physician: Chin Driver
--- NOTE | 2017-09-13 13:50 | Death Note ---
<Earnest Baez - Last Filed: 09/13/17 13:58> Discharge Sum: Summary - Date and Time Date of admission: 09/12/17 15:51 Date of : 09/13/17 Time of : 13:26 - Summary Details: 62-year-old male with a past medical history of severe mental retardation, spastic quadriplegia presented from [facility] emergency room for hypoxia. CT of the abdomen at that time revealed a pneumoperitoneum secondary to a perforated sigmoid diverticulitis. He arrived at [facility] intensive care unit and was found to be in respiratory distress and was subsequently intubated. Verbal consent was obtained from legal guardian at that time. He is also noted to be hypotensive and septic shock likely secondary to the perforation and had central line placement in the right internal jugular vein. He did go to the operating room that evening and had a perforation repair, washout, appendectomy and was returned to the intensive care unit. During the evening, patient was noted to continue to require pressure support, has revealed a high gap metabolic acidosis with a bicarbonate of 9. He was given sodium bicarbonate and aggressive fluid resuscitation. Palliative care was consulted in the morning. Palliative care spoke with patient's guardian who stated that she did not desire patient to go through cardiac arrest procedures. Forms for advocacy and protective services were filled out and sent for authorization through [facility]. Confirmation of change of CODE STATUS to DNR comfort care arrest was confirmed. Shortly after, physician was called to bedside as patient 's monitor was showing ventricular fibrillation. Upon arrival to patient's room , monitoring manager is revealing asystole. Heart sounds were absent on auscultation, pupils were fixed and dilated, no carotid pulse was appreciated, breath sounds on the ventilator. Bedside ultrasound was used to confirm absence of heart movement. Patient was pronounced at 1326 in the afternoon. - Additional Data Confirmation of as documented by pronouncing clinician: no pulse, no respirations, no heart sounds, pupils fixed and dilated Additional persons at bedside: other Attending physician: Chin Driver Was code activated?: No Hospice patient?: No Discharge Sum: Diag - PCOD Probable Cause of : Cardiac arrest Discharge Sum: Prov - Provider Primary care physician: Gabby Post Admitting clinician: Michelle Krueger Consults: 09/12/17 17:15 Consult to Critical Care [CONS] Routine Consulting Provider: [facility] Reason for Consult: Respiratory failure Call Completed: Yes Consult to Surgery [CONS] Routine Consulting Provider: [facility] Reason for Consult: Pneumoperitoneum Call Completed: Yes 09/13/17 07:42 Consult to Palliative Care [CONS] Routine Comment: Consulting Provider: Palliative [facility] Reason for Consult: Goals of care, legal guardian, code status Call Completed: No Pronouncing clinician: Earnest Baez <Michelle Krueger M - Last Filed: 09/13/17 16:50> Discharge Sum: Summary - Date and Time Date of admission: 09/12/17 15:51 - Additional Data Attending physician: Chin Driver Discharge Sum: Prov - Provider Primary care physician: Gabby Post Consults: 09/12/17 17:15 Consult to Critical Care [CONS] Routine Consulting Provider: [facility] Reason for Consult: Respiratory failure Call Completed: Yes Consult to Surgery [CONS] Routine Consulting Provider: [facility] Reason for Consult: Pneumoperitoneum Call Completed: Yes 09/13/17 07:42 Consult to Palliative Care [CONS] Routine Comment: Consulting Provider: [facility] Reason for Consult: Goals of care, legal guardian, code status Call Completed: No - Attending Attestation I examined this patient and my medical decision-making was reviewed with the Resident Physician. I agree with the documented findings, disposition and treatment plan as described except to the extent set forth below. Patient with septic shock with worsening condition and not responding to any treatment with supportive care and palliative care coordinating with guardian and CODE STATUS was addressed and subsequently patient from his disease.
[2017-09-13] MEDS ORDERED: MethylPREDNISolone 40 MG/ML VIAL IVP SCH (18:00)
== END 2017-09-13 13:26 | disposition expired | DRG 853 ==
LOC: ICNU
PROVIDERS: ADMIT Hospitalist; ATTEND Hospitalist